=== PATIENT | female | born 1965 | race Caucasian/White ===

== ENCOUNTER → 2019-08-29 08:13 | Outpatient (CLI) | payer BC ==
[2011-07-03 08:08] VITALS: BMI 28.4
== END | disposition home or self-care (01) ==
LOC: D.RT 08-22 09:00
PROVIDERS: ATTEND Internal Medicine Pulmonary Disease
DX: J44.9 Chronic obstructive pulmonary disease, unspecified (principal)

== ENCOUNTER → 2020-01-31 14:53 | Outpatient (CLI) | payer SELFPAY ==
[2011-07-03 08:08] VITALS: BMI 28.4
== END | disposition home or self-care (01) ==
LOC: D.RAD 14:53
PROVIDERS: ATTEND Internal Medicine Pulmonary Disease
DX: J44.9 Chronic obstructive pulmonary disease, unspecified (principal)